=== PATIENT | male | born 1960 | race American Indian/Alaskan Native ===

== ENCOUNTER 2016-12-15 09:05 | Outpatient (CLI) | payer BC ==
--- NOTE | 2016-12-15 10:42 | XRay Report ---
ROUTINE CHEST, TWO VIEWS: HISTORY: Shortness of breath, emphysema. Mild emphysematous changes are suspected in the upper lobes. The lungs are clear otherwise. No pleural effusion or pneumothorax. Normal heart and mediastinal structures. The bony thorax is intact. IMPRESSION: Mild emphysematous changes. No significant change since 02/12/16.
== END 2016-12-15 09:06 | disposition home or self-care (01) ==
LOC: SPVIMAG 09:05
PROVIDERS: ATTEND Family Medicine Adult Medicine
DX: J43.9 Emphysema, unspecified (principal)
CPT/HCPCS: 71020